=== PATIENT | female | born 1995 | race Caucasian/White ===

== ENCOUNTER 2017-03-12 11:44 | Emergency (ER) | payer BC ==
[2017-03-12 12:11] VITALS: BP 118/64
[2017-03-12] MEDS ORDERED: Ondansetron ODT TAB* 4 MG SL PRN (13:13)
--- NOTE | 2017-03-12 13:18 | UC ---
Abdominal Pain Female HPI - HPI Summary HPI Summary: 21 female presents with complaints of lower left/suprapubic localized, non- radiating pain that has been ongoing for the past month and a half. Patient states the pain has not increased or worsened over this period, it is just a constant dull pain. She states she is always nauseous and only has brief periods where she does not feel nauseous. She denies vomiting, diarrhea and constipation. Denies fever/chills, blood in stool, urinary symptoms and genitalia symptoms. Patient has GERD that she takes omeprazole for daily. She has also been diagnosed with anxiety, ADHD, bipolar and depression however does not take her medications. She has been able to drink but has not been able to eat due to having to go to the bathroom right after. She has been seen by GI specialist and worked up for ovarian cysts due to her family history but has not been diagnosed with anything. Was just at her [facility] annual appointment 1 week ago. Patient is supposed to be on control however also stopped taking that last summer. Denies . - History of Current Complaint Chief Complaint: UCAbdominalPain Stated Complaint: ABD PAIN Time Seen by Provider: 03/12/17 12:43 Hx Obtained From: Patient Hx Last Menstrual Period: 3 WEEKS AGO ?: No Onset/Duration: Gradual Onset, Lasting Weeks - month and a half, Still Present Severity Initially: Mild Severity Currently: Mild Pain Intensity: 5 Pain Scale Used: 0-10 Numeric - dull and achey Location: Discrete At: LLQ, Suprapubic Radiates: No Character: Aching, Cramping, Dull Aggravating Factor(s): Nothing Alleviating Factor(s): Nothing, NPO Associated Signs and Symptoms: Positive: Nausea. Negative: Diaphoresis, Fever, Cough, Back Pain, Constipation, Blood in Stool, Urinary Symptoms, Decreased Appetite, Vaginal Bleeding, Vaginal Discharge, Vomiting, Diarrhea Allergies/Adverse Reactions: Allergies Allergy/AdvReac Type Severity Reaction Status Date / Time No Known Allergies Allergy Verified 03/12/17 11:54 PMH/Surg Hx/FS Hx/Imm Hx Endocrine History Of: Denies: Diabetes, Thyroid Disease Cardiovascular History Of: Denies: Cardiac Disorders, Hypertension Respiratory History Of: Denies: COPD, Asthma GI/ History Of: Reports: Gastroesophageal Reflux Denies: Ulcer Psychological History Of: Reports: Anxiety, Depression, Bipolar Disorder - Surgical History Surgical History: None - Family History Known Family History: Positive: Other - mom has history of asthma and ovarian cysts - Social History Alcohol Use: None Substance Use Type: None Smoking Status (MU): Never Smoked Tobacco - Immunization History Vaccination Up to Date: Yes Review of Systems Constitutional: Negative Skin: Negative Respiratory: Negative Cardiovascular: Negative Gastrointestinal: Abdominal Pain, Other - nausea Genitourinary: Negative Motor: Negative Neurovascular: Negative Musculoskeletal: Negative Neurological: Negative All Other Systems Reviewed And Are Negative: Yes Physical Exam Triage Information Reviewed: Yes Appearance: Well-Appearing - sitting in chair laughing with friend, No Pain Distress, Well-Nourished, Obese Vital Signs: Initial Vital Signs Temp 98.2 F 03/12/17 12:06 Pulse 88 03/12/17 12:06 Resp 16 03/12/17 12:06 BP 118/64 03/12/17 12:06 Pulse Ox 99 03/12/17 12:06 Vital Signs Reviewed: Yes Eyes: Positive: Conjunctiva Clear ENT: Positive: Normal ENT inspection, Hearing grossly normal, Pharyngeal erythema, TMs normal Dental: Negative: Percussion Tenderness @, Cervical Lymphadenopathy Neck: Positive: Supple, Nontender, No Lymphadenopathy Respiratory: Positive: Chest non-tender, Lungs clear, Normal breath sounds, No respiratory distress, No accessory muscle use Cardiovascular: Positive: RRR, No Murmur, Pulses Normal, Brisk Capillary Refill Abdomen Description: Positive: No Organomegaly, Soft, Other: - minimal tenderness on palpation of LLQ/suprapubic area, did not appear to wince or gaurd from the pain. no scars or discolorations. Negative: Bruit, CVA Tenderness (R), CVA Tenderness (L), Distended, Guarding, Hernia @, McBurney's Point Tenderness, Peritoneal Signs Bowel Sounds: Positive: Present Musculoskeletal Exam: Normal Musculoskeletal: Positive: Strength Intact, ROM Intact, No Edema Neurological Exam: Normal Psychological Exam: Normal Skin Exam: Normal Abd Pain Female Course/Dx - Course Course Of Treatment: given zofran in office for nausea. will give some to take at home. referral to GI specialist and follow up with [facility] and primary care. Patient does not appear to have any emergent etiology of abdominal pain at this time due to PE findings, HPI and length of symptoms. Patient appears to be worried she has ovarian cysts because her mother also had similar pain and was diagnosed with cysts. Due to limited equipment at was advised to go to ER if smyptoms worsen or new symptoms develop such as fever, chills, increasing pain with radiation, urinary symptoms, vomiting and blood in stool. Patient is in agreement. Urinalysis and obtained and negative. Fluids and watch for worsening signs and symptoms. - Differential Dx/Diagnosis Differential Diagnosis: Constipation, Diverticulitis, Gall Bladder Disease, Irritable Bowel Syndrome, Ovarian Cyst, , Urinary Tract Infection, Other Provider Diagnoses: chronic suprapubic/LLQ abdominal pain, nausea Discharge - Discharge Plan Condition: Stable Disposition: HOME Prescriptions: Ondansetron ODT TAB* [Zofran 4 MG Odt TAB*] 4 mg PO Q6H PRN #20 tab.odt PRN Reason: Nausea Patient Education Materials: Chronic Abdominal Pain (ED) Forms: *School Release Referrals: Tony Sandoval DO [Primary Care Provider] - Johnny Bhatia MD [Medical Doctor] - Additional Instructions: Take prescribed medication to help with nausea only as needed. Call and make an appointment to be seen by GI specialist. Also recommend follow up with your [employer] to rule out reproductive system etiologies. Be sure to drink plenty of fluids and eat bland foods. If your pain increases, you have new symptoms, or worsening symptoms please go straight to the ER as we discussed. Follow up with your primary care provider for further evaluation and work up.
[2017-03-12] MEDS ORDERED: Ondansetron ODT TAB* 4 MG ONE (13:24)
[2017-03-12] MEDS ORDERED: Ondansetron ODT TAB* 4 MG PO ONE (13:25)
== END 2017-03-12 13:30 | disposition home or self-care (01) ==
LOC: UCCORT 11:44
DX: R10.30 Lower abdominal pain, unspecified (principal); R10.32 Left lower quadrant pain; Z32.02 Encounter for pregnancy test, result negative; R11.0 Nausea; F41.8 Other specified anxiety disorders; F31.9 Bipolar disorder, unspecified
CPT/HCPCS: 81003; 84702; 99212; G0463

== ENCOUNTER 2018-04-11 14:22 | Emergency (ER) | payer BC ==
[2018-04-11 15:06] VITALS: BP 136/65
--- NOTE | 2018-04-11 15:17 | UC ---
Throat Pain/Nasal John HPI - HPI Summary HPI Summary: 22 yo female with sore throat/fever/chills/ESTEBAN x 3 days myalgias and arthralgias no n/v/d - History of Current Complaint Chief Complaint: UCGeneralIllness Stated Complaint: FEVER,CHILLS,ST Time Seen by Provider: 04/11/18 14:40 Hx Obtained From: Patient Hx Last Menstrual Period: 03/30/18 Onset/Duration: Gradual Onset, Lasting Days Severity: Moderate Pain Intensity: 6 Pain Scale Used: 0-10 Numeric Cough: None - Epiglottits Risk Factors Epiglottis Risk Factors: Negative - Allergies/Home Medications Allergies/Adverse Reactions: Allergies Allergy/AdvReac Type Severity Reaction Status Date / Time No Known Allergies Allergy Verified 03/12/17 11:54 Home Medications: Home Medications DULoxetine DR CAP* [Cymbalta CAP*] 30 mg PO DAILY 04/11/18 [History Confirmed ] traZODone TAB* [Desyrel TAB*] 50 mg PO BEDTIME 04/11/18 [History Confirmed 04/11] PMH/Surg Hx/FS Hx/Imm Hx Previously Healthy: Yes Neurological History: Migraine - Surgical History Surgical History: Yes Surgery Procedure, Year, and Place: right leg sx with hardware. wisdom teeth extractions - Family History Known Family History: Positive: Hypertension, Respiratory Disease, Other - mom has history of asthma and ovarian cysts - Social History Alcohol Use: None Substance Use Type: None Smoking Status (MU): Never Smoked Tobacco - Immunization History Vaccination Up to Date: Yes Review of Systems Constitutional: Fever, Chills Skin: Negative Eyes: Negative ENT: Sore Throat Respiratory: Negative Cardiovascular: Negative Gastrointestinal: Negative Genitourinary: Negative Motor: Negative Neurovascular: Negative Musculoskeletal: Arthralgia, Myalgia Neurological: Headache Psychological: Negative Is Patient Immunocompromised?: No All Other Systems Reviewed And Are Negative: Yes Physical Exam Triage Information Reviewed: Yes Appearance: Well-Appearing, No Pain Distress, Well-Nourished Vital Signs: Initial Vital Signs Temp 99.5 F 04/11/18 15:01 Pulse 109 04/11/18 15:01 Resp 16 04/11/18 15:01 BP 136/65 04/11/18 15:01 Pulse Ox 96 04/11/18 15:01 Eyes: Positive: Conjunctiva Clear ENT: Positive: Hearing grossly normal, Pharyngeal erythema, TMs normal, Tonsillar swelling, Uvula midline. Negative: Nasal congestion, Nasal drainage, Tonsillar exudate, Trismus, Muffled voice, Hoarse voice, Sinus tenderness Neck: Positive: Supple, Nontender, Enlarged Nodes @ - ant cervical Respiratory: Positive: Lungs clear, Normal breath sounds, No respiratory distress, No accessory muscle use Cardiovascular: Positive: RRR, No Murmur Musculoskeletal: Positive: ROM Intact, No Edema Neurological: Positive: Alert Psychological Exam: Normal Skin Exam: Normal Diagnostics - Laboratory Diagnostic Studies Completed/Ordered: strep (-) Throat Pain/Nasal Course/Dx - Differential Dx/Diagnosis Provider Diagnoses: acute tonsillitis Discharge - Sign-Out/Discharge Documenting (check all that apply): Discharge/Admit/Transfer - Discharge Plan Condition: Stable Disposition: HOME Prescriptions: Cephalexin CAP* [Keflex CAP*] 500 mg PO BID #20 cap Patient Education Materials: Tonsillitis (ED) Referrals: LEONARD Oviedo [Primary Care Provider] - Additional Instructions: recheck in 3-4 days if not better recheck sooner for worsening symptoms rest fluids advil or tylenol if needed - Billing Disposition and Condition Condition: STABLE Disposition: HOME
--- NOTE | 2018-04-12 18:54 | UC ---
- Progress Note Progress Note: patient c/o nausea with Keflex ---will return call to patient try with small amounts of food is pt has continued nausea stop keflex and change to amoxicillin po bid for 10 days Discharge - Sign-Out/Discharge Documenting (check all that apply): Discharge/Admit/Transfer - Discharge Plan Condition: Stable Disposition: HOME Prescriptions: Cephalexin CAP* [Keflex CAP*] 500 mg PO BID #20 cap Patient Education Materials: Tonsillitis (ED) Referrals: LEONARD Oviedo [Primary Care Provider] - Additional Instructions: recheck in 3-4 days if not better recheck sooner for worsening symptoms rest fluids advil or tylenol if needed - Billing Disposition and Condition Condition: STABLE Disposition: HOME
== END 2018-04-11 15:21 | disposition home or self-care (01) ==
LOC: UCCORT 14:22
DX: J03.90 Acute tonsillitis, unspecified (principal); R11.0 Nausea; T36.1X5A Adverse effect of cephalosporins and other beta-lactam antibiotics, initial encounter; Y92.009 Unspecified place in unspecified non-institutional (private) residence as the place of occurrence of the external cause
CPT/HCPCS: 87651; 99212; G0463